=== PATIENT | female | born 1995 ===

== ENCOUNTER 2017-03-15 12:28 | Emergency (ER) | payer OTHER ==
[2017-03-15 12:36] VITALS: BP 136/92; PULSE 132; RESP 24; TEMP 98.4; O2SAT 97
--- NOTE | 2017-03-15 12:44 | EDPHY ---
H & P Stated Complaint: ETOH, from [employer] HPI/ROS: HPI: This is a 21-year-old female who presents with Chief Complaint: Alcohol intoxication Location: Body Quality: Alcohol intoxication Duration: Today Signs and Symptoms: No loss of consciousness, no cyanosis, no apnea, no chest pain, no shortness of breath, no abdominal pain, no nausea, no vomiting Timing: Today Severity: Moderate Context: Patient was brought to the emergency room by campus police as they found the patient intoxicated and having difficulty ambulating today during the football game. Patient admits to drinking alcohol. Is answering questions appropriately. Denies suicidal ideation/homicidal ideation/psychosis. Denies recreational drug use. Modifying Factors: Comment: ROS: Constitutional: No fever, no chills, no weight loss Eyes: No blurred vision Respiratory: No shortness of breath, no cough Cardiovascular: No chest pain Gastrointestinal: No nausea, no vomiting no diarrhea Genitourinary: No dysuria Extremities: No myalgias Neurologic: No weakness, no numbness Skin: No rashes Hematologic: No bruising, no bleeding MEDICAL/SURGICAL/SOCIAL HISTORY: Generally healthy. Denies surgical history. Source: Patient Exam Limitations: Intoxication - Personal History LMP (Females 10-55): Unknown Current Tetanus/Diphtheria Vaccine: Unsure Current Tetanus Diphtheria and Acellular Pertussis (TDAP): Unsure - Medical/Surgical History Other PMH: unknown - Social History Smoking Status: Unknown if ever smoked - Physical Exam Exam: CONSTITUTIONAL: Intoxicated young adult female, awake and alert, no obvious distress HEENT: Atraumatic and normocephalic, PERRL, EOMI. Tympanic membranes clear. Oropharynx clear, no exudate and moist pink mucosa. Airway patent. No lymphadenopathy. No meningismus. Cardiovascular: Normal S1/S2, tachycardia, regular rhythm, without murmur rub or gallop. PULMONARY/CHEST: Symmetrical and nontender. Clear to auscultation bilaterally Good air movement. No accessory muscle usage. ABDOMEN: Soft, nondistended, nontender, no rebound, no guarding, no peritoneal signs, no masses or organomegaly. No CVAT. EXTREMITIES: 2/2 pulses, no deformities, no clubbing, no cyanosis or edema. NEUROLOGICAL: no focal neuro deficits. GCS 15. SKIN: Warm and dry, no erythema. no rash. Good capillary refill. Constitutional: Initial Vital Signs Temperature (C) 36.9 C 03/15/17 12:35 Heart Rate 132 H 03/15/17 12:35 Respiratory Rate 24 H 03/15/17 12:35 Blood Pressure 136/92 H 03/15/17 12:35 O2 Sat (%) 97 03/15/17 12:35 O2 Delivery Mode Room Air Allergies/Adverse Reactions: Unable to Assess Allergy (Unverified 03/15/17 12:35) Home Medications: Medication Instructions Recorded Unobtainable 03/15/17 Medical Decision Making ED Course/Re-evaluation: Patient is mildly intoxicated with alcohol. GCS 15; ambulatory without ataxia. She is not a harm to herself or others. Will discharge her back to the care of campus police. Offer discharge to [facility] but patient politely refused. Differential Diagnosis: Altered mental status including but not limited to hypoglycemia, infectious process, electrolyte abnormality, head injury and intoxicants. Departure - Departure Disposition: Home, Routine, Self-Care Clinical Impression: Alcohol intoxication Qualifiers: Complication of substance-induced condition: uncomplicated Qualified Code(s): F10.920 - Alcohol use, unspecified with intoxication, uncomplicated Condition: Good Instructions: Alcohol Intoxication (ED) Referrals: [facility] Hours [Outside] - As per Instructions
== END 2017-03-15 12:46 | disposition home or self-care (01) ==
DX: F10.920 Alcohol use, unspecified with intoxication, uncomplicated (principal)